=== PATIENT | female | born 1980 ===

== ENCOUNTER 2019-08-02 07:40 | Outpatient (CLI) | payer OTHER ==
[2019-08-02] MEDS ORDERED: LACTATED RINGERS 1,000 ML IV ONE (09:15)
[2019-08-02 10:17] LABS: Basophils % (Auto) 0.3 % (0.0-1.8); Eosinophils # (Auto) 0.1 K/mm3 (0.0-0.4); Hematocrit 34.1 % (30.3-42.9); Hemoglobin 11.5 gm/dl (10.1-14.3); Lymphocytes % (Auto) 11.9 % (13.4-35.0); Mean Corpuscular HGB Conc 34 % (30-34); Mean Corpuscular Volume 82 fl (79-97); Monocytes # (Auto) 0.3 K/mm3 (0.0-0.8); Monocytes % (Auto) 3.8 % (0.0-7.3); Platelet Count 215 K/mm3 (140-440); Red Blood Count 4.16 M/mm3 (3.65-5.03); Red Cell Distribution Width 14.6 % (13.2-15.2)
[2019-08-02 11:55] VITALS: BP 117/56
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
== END 2019-08-02 12:56 | disposition swing bed (61) ==
LOC: TRG 07:40 → LD 07:40 → TRG 12:56
PROVIDERS: ATTEND Obstetrics & Gynecology
DX: O26.893 Other specified pregnancy related conditions, third trimester (principal); M79.601 Pain in right arm; M79.672 Pain in left foot; M25.562 Pain in left knee; M79.642 Pain in left hand; M54.2 Cervicalgia; O47.03 False labor before 37 completed weeks of gestation, third trimester; O32.1XX0 Maternal care for breech presentation, not applicable or unspecified; O99.513 Diseases of the respiratory system complicating pregnancy, third trimester; J45.909 Unspecified asthma, uncomplicated; Z90.49 Acquired absence of other specified parts of digestive tract; Z87.891 Personal history of nicotine dependence; Z3A.29 29 weeks gestation of pregnancy; V89.2XXA Person injured in unspecified motor-vehicle accident, traffic, initial encounter; Y93.89 Activity, other specified; Y92.89 Other specified places as the place of occurrence of the external cause; Y99.8 Other external cause status
CPT/HCPCS: 36415; 76815; 76819; 85025; 86850; 86870; 86900; 86901; 96360; J7120

== ENCOUNTER 2019-08-02 13:11 | Emergency (ER) | payer OTHER ==
[2019-08-02] MEDS ORDERED: ACETAMINOPHEN 325 MG TAB PO ONE (16:17)
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
[2019-08-02 19:02] VITALS: BP 127/68
== END 2019-08-02 19:01 | disposition home or self-care (01) ==
LOC: ED 13:11
DX: O9A.213 Injury, poisoning and certain other consequences of external causes complicating pregnancy, third trimester (principal); S93.602A Unspecified sprain of left foot, initial encounter; S16.1XXA Strain of muscle, fascia and tendon at neck level, initial encounter; J45.909 Unspecified asthma, uncomplicated; Z87.891 Personal history of nicotine dependence; V49.49XA Driver injured in collision with other motor vehicles in traffic accident, initial encounter; Y93.89 Activity, other specified; Y92.488 Other paved roadways as the place of occurrence of the external cause; Y99.8 Other external cause status
CPT/HCPCS: 72040; 99283

== ENCOUNTER 2019-10-02 05:40 | Inpatient (IN) | payer OTHER ==
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
[~2019-10-02 05:40] MED LIST: BICITRA ORAL LIQD 30ML PO ONE; FAMOTIDINE 20 MG/2 ML INJ IV ONE; LACTATED RINGERS 1,000 ML IV SCH; METOCLOPRAMIDE 10 MG/2 ML INJ IV ONE; OXYTOCIN 20 UNIT/1000ML DRIP 20 UNITS/1,000 ML BAG IV SCH
[2019-10-02] MEDS ORDERED: ceFAZolin/Water 2 GM/20 ML 2 GM/20 ML SYRINGE IV NR (06:00)
[2019-10-02] MEDS ORDERED: FAMOTIDINE 20 MG/2 ML INJ IV ONE (07:12)
[2019-10-02] MEDS ORDERED: BICITRA ORAL LIQD 30ML ONE (07:12)
[2019-10-02] MEDS ORDERED: METOCLOPRAMIDE 10 MG/2 ML INJ ONE (07:17)
[2019-10-02 07:28] LABS: Basophils % (Auto) 0.5 % (0.0-1.8); Eosinophils # (Auto) 0.2 K/mm3 (0.0-0.4); Eosinophils % (Auto) 2.2 % (0.0-4.3); Hematocrit 32.5 % (30.3-42.9); Lymphocytes # (Auto) 1.5 K/mm3 (1.2-5.4); Lymphocytes % (Auto) 19.8 % (13.4-35.0); Mean Corpuscular HGB Conc 34 % (30-34); Mean Corpuscular Volume 81 fl (79-97); Monocytes # (Auto) 0.6 K/mm3 (0.0-0.8); Monocytes % (Auto) 7.1 % (0.0-7.3); Platelet Count 178 K/mm3 (140-440); Red Blood Count 4.04 M/mm3 (3.65-5.03); Red Cell Distribution Width 15.8 % (13.2-15.2)
--- NOTE | 2019-10-02 07:29 | Anesthesia Day of Surgery ---
Anesthesia Day of Surgery - Day of Surgery Patient Examined: Yes Patient H&P Reviewed: Yes Patient is NPO: Yes
--- NOTE | 2019-10-02 07:29 | Anesthesia Consultation ---
Anesthesia Consult and Med Hx Date of service: 10/02/19 - Airway Anesthetic Teeth Evaluation: Good ROM Head & Neck: Adequate Mental/Hyoid Distance: Adequate Mallampati Class: Class II Intubation Access Assessment: Probably Good - Pulmonary Exam CTA: Yes - Cardiac Exam Cardiac Exam: RRR - Pre-Operative Health Status ASA Pre-Surgery Classification: ASA2 Proposed Anesthetic Plan: Spinal - Pulmonary Hx Asthma: Yes - Cardiovascular System Hx Hypertension: No - Central Nervous System Hx Seizures: No Hx Psychiatric Problems: No - Endocrine Hx Renal Disease: No Hx Hypothyroidism: No Hx Hyperthyroidism: No - Hematic Hx Anemia: Yes Hx Sickle Cell Disease: No - Other Systems Hx Alcohol Use: No
[2019-10-02] MEDS ORDERED: BUPIVACAINE/PF (0.5%) 5 MG/1 ML 30 ML VIAL INFILTRATI ONE (08:48)
[2019-10-02] MEDS ORDERED: KETOROLAC 30 MG/1 ML INJ ONE (08:48)
[2019-10-02] MEDS ORDERED: DEXMEDETOMIDINE 200 MCG/2 ML VIAL IV ONE (08:48)
[2019-10-02] MEDS ORDERED: dexAMETHasone 20 MG/5 ML VIAL ONE (08:48)
[2019-10-02] MEDS ORDERED: OXYTOCIN 10 UNIT/1 ML INJ ONE (08:48)
--- NOTE | 2019-10-02 09:33 | Procedure Note ---
OB Delivery Note - Delivery Date of Delivery: 10/02/19 Surgeon: JESSICA HAMEED Estimated blood loss: other (800 mL) - Section Preop diagnosis: repeat , desires sterilization Postop diagnosis: same section procedure: section, repeat low transverse, other (Bilateral Salpingectomy ) Disposition: PACU Complications: none Narrative: Please see operative report. - A at 1 minute: 8 at 5 minutes: 9 Infant Gender: Male (2396g (5lb 5oz) @ 0838 am)
--- NOTE | 2019-10-02 09:35 | Operative Report ---
Operative Report Operative Report: Date of procedure: October 02, 2019 Preoperative diagnosis: 1) IUP at 37w5d 2) RH Isoimmunization 3) Previous cole jennifer x 1 4) Undesired Fertility 5) AMA Postoperative diagnosis: Same Procedure: 1) Repeat low transverse section 2) Bilateral salpingectomy Surgeon: Carmen Hart M.D. Anesthesia: Regional Findings: 1) Viable male , Apgars 8 and 9 , weight 2396 g, (5 lb 5 oz) in cephalic presentation 2) Normal appearing ovaries and tubes Estimated blood loss: 800 mL Urine output: 25 mL, clear at the end of the procedure Drains: Lei to gravity Specimens: Placenta, fallopian tubes to pathology Complications: Counts correct x 3 Disposition: Stable to PACU Indication for procedure: Pt is a 38 year old female at 37w5d who presents for scheduled section secondary to previous section and Rh Isoimmunization per [facility] recommendation. Operation in Detail: After the risks, benefits, alternatives and complications were explained to the patient she gave informed consent for the procedure. She was subsequently taken to the operating room where regional anesthesia was noted to be adequate. She was then placed in the dorsal supine position with leftward tilt and prepped and draped in a normal sterile fashion. heart tones were noted prior to in cision. A timeout was performed. A Pfannenstiel skin incision was made with the knife and carried down to the layer of the fascia with the Bovie. The fascia was incised in the midline and the fascial incision was extended bilaterally with the Bovie. The fascial incision was then stretched. The rectus muscles were then in the midline and partially transected for adequate visualization. The peritoneum was then entered sharply between two Susy clamps. The peritoneal incision was extended with good visualization of the bladder. The peritoneal incision was then stretched. An Valeriy retractor was placed. The bladder blade was placed. The vesicouterine peritoneum was incised with Metzenbaum scissors and a bladder flap was created. The bladder blade was replaced. A transverse incision was made in the lower uterine segment with a knife and extended bilaterally with the bandage scissors. The head was delivered without difficulty followed by delivery of the shoulders and body. was bulb suctioned at delivery. The cord was clamped and cut and the was handed to NICU staff in attendance. Cord blood was collected. The placenta was then delivered manually. The uterus was exteriorized and cleared of all clots and debris. The hysterotomy was then reapproximated with 0 Vicryl in a running locked fashion. A second layer of 0 Vicryl was used in an imbricating fashion. The hysterotomy was inspected and hemostasis was noted. Attention was then turned to the salpingectomy. The left tube was identified, grasped with a aniket and followed out to the fimbriae. The mesosalpinx underlying the left tube was ligated with the Ligasure until the left fallopian tube was excised and sent to pathology. The same procedure was followed with the right fallopian tube. It was identified and followed to the fimbriae. The mesosalpinx underlying the right fallopian tube was ligated with the Ligasure device until the tube was excised and sent to pathology. Hemostasis was noted. The gutters were irrigated and cleared of all clots and debris. The uterus was placed back into the peritoneal cavity. The hysterotomy was again inspected and noted to be hemostatic. Surgicel was placed over the hysterotomy. The peritoneum was reapproximated with 2-0 Vicryl in a running fashion incorporating the rectus muscles. Surgicel was placed over the muscles. The fascia was reapproximated with 0-Vicryl in a running fashion. The subcutaneous tissue was reapproximated with 3-0 Vicryl in a running fashion. The skin was reapproximated with 4-0 Vicryl in a subcuticular fashion. The incision was then covered with steri strips and a pressure dressing. The procedure was then ended. The patient tolerated the procedure well and was taken to the PACU in stable condition. All instrument, lap, and needle counts were correct 3.
--- NOTE | 2019-10-02 10:22 | Post Anesthesia Evaluation ---
- Post Anesthesia Evaluation Patient Participated: Yes Airway Patent: Yes Stable Respiratory Function: Yes Nausea/Vomiting: No Temp > 96.8F: Yes Pain Manageable: Yes Adequeate Hydration: Yes Anesthesia Complications: No Block Receding Appropriately: Yes
[2019-10-02] MEDS ORDERED: ONDANSETRON 4 MG/2 ML INJ IV PRN (11:45)
[2019-10-02] MEDS ORDERED: LANOLIN/ZINC/DIMETHICONE (LANSINOH) 7 GM TP PRN (11:45)
[2019-10-02] MEDS ORDERED: NALOXONE 0.4 MG/1 ML INJ IV PRN (11:45)
[2019-10-02] MEDS ORDERED: MORPHINE 4 MG/1 ML INJ IV PRN (11:45)
[2019-10-02] MEDS ORDERED: MORPHINE 2 MG/1 ML INJ IV PRN (11:45)
[2019-10-02] MEDS ORDERED: D5W/LACTATED RINGERS 1,000 ML IV SCH (11:45)
[2019-10-02] MEDS ORDERED: WITCH HAZEL/ GLYCERIN PAD TP PRN (11:45)
[2019-10-02] MEDS ORDERED: OXYTOCIN 20 UNIT/1000ML DRIP 20 UNITS/1,000 ML BAG IV SCH (11:45)
[2019-10-02] MEDS ORDERED: ACETAMINOPHEN 325 MG TAB PO PRN (11:45)
[2019-10-02] MEDS ORDERED: MAGNESIUM HYDROXIDE (MOM) ORAL LIQD UDC PO PRN (11:45)
[2019-10-02] MEDS ORDERED: SIMETHICONE 80 MG CHEW TAB PO PRN (11:45)
[2019-10-02] MEDS: KETOROLAC 30 MG/1 ML INJ IV PRN ×2 (15:11→23:53)
[2019-10-02] MEDS: ceFAZolin/NS 1 GM/50 ML 1 GM/50 ML BAG IV SCH (17:45)
[2019-10-02 21:37] LABS: Hematocrit 29.9 % (30.3-42.9); Hemoglobin 10.1 gm/dl (10.1-14.3)
[2019-10-03] MEDS: ceFAZolin/NS 1 GM/50 ML 1 GM/50 ML BAG IV SCH (01:19)
[2019-10-03] MEDS: KETOROLAC 30 MG/1 ML INJ IV PRN (05:25)
--- NOTE | 2019-10-03 08:40 | Progress Note ---
Assessment and Plan A: POD1 s/p pLTCS and salpingectomy Gestational hypertension Labs stable P: Check BP q1hr Collect pree labs Close clinical monitoring Subjective - Subjective Date of service: 10/03/19 Principal diagnosis: s/p repeat LTCS and salpingectomy Interval history: POD1 s/p repeat LTCS and salpingectomy. Blood pressure is trending up. One severe range BP last night, pt states she was in significant pain when BP was assessed. Mild range since then. She denies GARSIA, scotomata, RUQ pain. Patient reports: appetite normal, voiding normally, pain well controlled, flatus, ambulating normally, no bowel movement : doing well Objective - Vital Signs Latest vital signs: Vital Signs Temp Pulse Resp BP BP Pulse Ox 10/03/19 07:42 98.0 F 74 20 147/84 98 10/03/19 00:15 98.6 F 83 19 161/75 10/02/19 20:16 98.9 F 71 18 146/81 10/02/19 15:58 97.8 F 68 20 149/86 98 10/02/19 11:56 97.4 F L 61 20 118/65 97 10/02/19 11:46 97.9 F 56 L 16 136/76 100 10/02/19 10:42 97.6 F 10/02/19 10:35 53 L 18 124/68 100 10/02/19 10:20 55 L 18 121/67 99 10/02/19 10:05 54 L 18 113/67 99 10/02/19 09:50 68 18 104/62 99 10/02/19 09:45 71 18 95/36 99 10/02/19 09:40 97.4 F L 67 18 104/38 99 Intake and Output 10/02/19 10/03/19 10/03/19 23:59 07:59 15:59 Intake Total 290 Output Total 1000 800 Balance -710 -800 Intake: IV 50 ANCEF/NS 1 GM/50 ML 1 gm 50 In 50 ml @ 100 mls/hr IV Q8H [facility] Rx#:[id number] Oral 240 Output: Urine 1000 800 Indwelling Catheter 400 Void 600 800 Other: Total, Intake Amount 240 Total, Output Amount 600 800 # Voids Void 1 1 - Exam Lungs: Present: Normal air movement Abdomen: Present: soft. Absent: distention Uterus: Present: firm, fundal height below umbilicus. Absent: bogginess Extremities: Present: normal Incision: Present: dressed - Labs Labs: Abnormal lab results 10/02/19 10/02/19 Range/Units 07:15 21:23 Hct 29.9 L (30.3-42.9) % Crossmatch See Detail
[2019-10-03] MEDS: FERROUS SULFATE 325 MG TAB PO SCH (09:05)
[2019-10-03] MEDS: IBUPROFEN 800 MG TAB PO PRN ×2 (09:05→23:05)
[2019-10-03 09:26] LABS: Alanine Aminotransferase 47 units/L (7-56); Uric Acid 5.8 mg/dL (3.5-7.6)
[2019-10-03 09:45] LABS: Creatinine,Urine 140.9 mg/dL (0.1-20.0); Protein/Creatinine Ratio,Urine 0.15
[2019-10-03] MEDS ORDERED: MEASLES, MUMPS & RUBELLA 12,500 UNIT/0.5 ML VACCINE SUB-Q ONE (10:00)
[2019-10-03] MEDS ORDERED: DIPHtheria,PERTUSSIS(ACELL),TETANUS VACCINE/PF 0.5 ML VIAL IM ONE (10:00)
[2019-10-03] MEDS ORDERED: CALCIUM CARBONATE 500 MG TAB CHEW PO PRN (17:43)
[2019-10-03] MEDS: oxyCODONE /ACETAMINOPHEN 5-325MG TAB PO PRN (17:53)
[2019-10-04] MEDS: oxyCODONE /ACETAMINOPHEN 5-325MG TAB PO PRN ×3 (00:25→15:08)
[2019-10-04] MEDS: FERROUS SULFATE 325 MG TAB PO SCH (09:22)
[2019-10-04] MEDS: IBUPROFEN 800 MG TAB PO PRN ×2 (09:22→21:15)
--- NOTE | 2019-10-04 14:42 | Progress Note ---
Assessment and Plan A: POD#2 s/p repeat section, bilateral salpingectomy P: Routine postoperative care. Anticipate discharge tomorrow. Subjective - Subjective Date of service: 10/04/19 Principal diagnosis: s/p repeat LTCS and salpingectomy Interval history: No complaints. Patient reports: appetite normal, voiding normally, pain well controlled, flatus, bowel movement, ambulating normally [place]: in NICU Objective - Vital Signs Latest vital signs: Vital Signs Temp Pulse Resp BP Pulse Ox 10/04/19 09:14 97.8 F 80 18 135/75 98 10/04/19 07:33 18 10/04/19 06:34 18 10/04/19 01:39 97.7 F 67 20 137/82 98 10/04/19 01:25 18 10/04/19 00:25 18 10/04/19 00:05 18 10/03/19 23:05 18 10/03/19 15:53 98.5 F 75 20 151/87 99 Intake and Output 10/03/19 10/04/19 10/04/19 22:59 06:59 14:59 Intake Total 120 360 Balance 120 360 Intake: Oral 120 120 Intake, Free Water 240 Other: Total, Intake Amount 120 120 # Voids Void 1 1 - Exam Abdomen: Present: soft
[2019-10-05] MEDS: IBUPROFEN 800 MG TAB PO PRN ×2 (04:59→22:37)
--- NOTE | 2019-10-05 08:46 | Progress Note ---
Assessment and Plan A: POD#3s/p repeat section, bilateral salpingectomy New onset headache and severe range hypertension consistent with severe pr eeclampsia P: Pt to be transferred to labor and delivery to receive IV Magnesium Sulfate for seizure prophylaxis. Continue to monitor closely. Subjective - Subjective Date of service: 10/05/19 Principal diagnosis: s/p repeat LTCS and salpingectomy Interval history: Pt reports headache overnight, and has severe range blood pressures today. Patient reports: appetite normal, voiding normally, pain well controlled, flatus, bowel movement, ambulating normally [place]: in NICU Objective - Vital Signs Latest vital signs: Vital Signs Temp Pulse Resp BP Pulse Ox 10/04/19 23:38 97.7 F 66 18 140/60 98 10/04/19 15:12 97.9 F 75 20 147/81 97 10/04/19 09:14 97.8 F 80 18 135/75 98 Intake and Output 10/04/19 10/05/19 10/05/19 22:59 06:59 14:59 Intake Total 600 600 Balance 600 600 Intake: Oral 240 Intake, Free Water 360 600 Other: Total, Intake Amount 240 # Voids Void 1 2 - Exam Abdomen: Present: soft Uterus: Present: fundal height below umbilicus Extremities: Present: edema (trace) Incision: Present: intact - Labs Labs: Abnormal lab results 10/02/19 Range/Units 07:15 Crossmatch See Detail
[2019-10-05] MEDS ORDERED: MAGNESIUM SULFATE 40GM/1000ML 40 GM/1,000 ML BAG IV ONE (09:02)
[2019-10-05] MEDS ORDERED: MAGNESIUM SULFATE 4 GM/100 ML BAG IV ONE ×2 (09:03→09:57)
[2019-10-05] MEDS ORDERED: LACTATED RINGERS 1,000 ML ONE (09:40)
[2019-10-05] MEDS ORDERED: LACTATED RINGERS 1,000 ML IV SCH (09:57)
[2019-10-05] MEDS ORDERED: hydrALAZINE 20 MG/1 ML INJ IV PRN (09:57)
[2019-10-05] MEDS ORDERED: MAGNESIUM SULFATE 40GM/1000ML 40 GM/1,000 ML BAG IV SCH (09:57)
[2019-10-05] MEDS ORDERED: BUTALB/ACETAMINOPHEN/CAFFEINE TAB PO PRN (11:51)
[2019-10-05] MEDS: oxyCODONE /ACETAMINOPHEN 5-325MG TAB PO PRN (17:58)
[2019-10-05] MEDS: FERROUS SULFATE 325 MG TAB PO SCH (19:06)
[2019-10-06] MEDS: oxyCODONE /ACETAMINOPHEN 5-325MG TAB PO PRN ×2 (03:49→12:04)
[2019-10-06] MEDS: IBUPROFEN 800 MG TAB PO PRN (12:05)
--- NOTE | 2019-10-06 12:14 | Progress Note ---
Assessment and Plan A: POD#4 s/p repeat section, bilateral salpingectomy New onset headache and severe range hypertension consistent with severe p reeclampsia; s/p 24 hr magnesium sulfate P: Discharge home today on PO labetalol with follow up this coming week for BP check. Subjective - Subjective Date of service: 10/06/19 Principal diagnosis: s/p repeat LTCS and salpingectomy Interval history: Pt feels much better. She has received 24 hours of magnesium sulfate for seizure prophylaxis. Patient reports: appetite normal, voiding normally, pain well controlled, flatus, bowel movement, ambulating normally Dola: doing well, in NICU Objective - Vital Signs Latest vital signs: Vital Signs Temp Pulse BP 10/06/19 11:54 82 159/83 10/06/19 11:41 74 161/81 10/06/19 11:40 74 160/80 10/06/19 10:51 76 138/80 10/06/19 08:29 77 152/84 10/06/19 08:12 86 165/74 10/06/19 08:06 85 159/74 10/06/19 07:36 65 141/81 10/06/19 07:06 68 140/66 10/06/19 06:36 62 135/81 10/06/19 06:07 65 150/72 10/06/19 05:36 66 122/66 10/06/19 05:10 68 147/73 10/06/19 05:09 72 143/71 10/06/19 04:36 65 131/74 10/06/19 04:06 66 133/64 10/06/19 03:36 68 159/82 10/06/19 03:06 75 158/73 10/06/19 02:36 79 161/88 10/06/19 02:06 64 139/73 10/06/19 01:36 60 154/74 10/06/19 01:06 61 139/72 10/06/19 00:36 65 138/68 10/06/19 00:06 72 139/79 10/05/19 23:36 65 132/72 10/05/19 23:06 70 138/79 10/05/19 22:36 65 127/72 10/05/19 22:06 70 125/76 10/05/19 21:36 68 132/73 10/05/19 21:06 71 139/73 10/05/19 20:36 69 126/70 10/05/19 20:06 76 129/65 10/05/19 19:36 85 132/72 10/05/19 19:06 93 H 138/75 10/05/19 18:49 102 H 152/89 10/05/19 18:36 95 H 145/100 10/05/19 18:06 86 142/82 10/05/19 18:00 98.4 F 10/05/19 17:46 84 156/84 10/05/19 17:43 88 168/82 10/05/19 17:36 98 H 202/93 10/05/19 17:06 89 138/68 10/05/19 16:36 88 133/65 10/05/19 16:06 93 H 143/67 10/05/19 16:00 98.1 F 10/05/19 15:36 96 H 140/63 10/05/19 15:06 92 H 146/67 10/05/19 14:33 96 H 161/77 10/05/19 14:31 93 H 172/77 10/05/19 14:30 98 H 201/85 10/05/19 14:00 98.1 F 10/05/19 12:30 98.3 F 10/05/19 12:21 97 H 165/77 Intake and Output 10/05/19 10/06/19 10/06/19 22:59 06:59 14:59 Output Total 1800 1600 800 Balance -1800 -1600 -800 Output: Urine 1800 1600 800 Void 1800 1600 800 Other: Total, Output Amount 800 500 800 # Voids Void 3 2 3 - Exam Breasts: Present: deferred Abdomen: Present: soft. Absent: distention Uterus: Present: fundal height below umbilicus Extremities: Present: normal Incision: Present: intact - Labs Labs: Abnormal lab results 10/06/19 10/06/19 Range/Units 00:27 08:27 Magnesium 5.60 H 6.40 H (1.7-2.3) mg/dL
--- NOTE | 2019-10-06 12:18 | Discharge Summary ---
Providers - Providers Date of Admission: 10/02/19 05:40 Date of discharge: 10/06/19 Attending physician: JESSICA HAMEED Primary care physician: JESSICA HAMEED Hospitalization Reason for admission: section Delivery: Procedure: section, repeat low transverse, other (Bilateral salpingectomy ) Procedure details: Please see operative report. Incision: intact Other procedures: none complications: none Discharge diagnosis: IUP at term delivered [place] baby: male Hospital course: Pt was admitted for repeat section which she tolerated well. During her hospitalization she developed severe preeclampsia and received 24 hours magnesium sulfate for seizure prophylaxis, and was started on PO Labetalol. She met discharge criteria on POD#4. She will follow up this week in the office for a BP check. Condition at discharge: Stable Disposition: DC-01 TO HOME OR SELFCARE - Discharge Diagnoses (1) Term of male Status: Acute (2) S/P section Status: Acute (3) AMA (advanced maternal age) multigravida 35+ Status: Acute Qualifiers: Trimester: third trimester Qualified Code(s): O09.523 - Supervision of elderly multigravida, third trimester (4) Severe preeclampsia Status: Acute Qualifiers: Trimester: third trimester Qualified Code(s): O14.13 - Severe pre- eclampsia, third trimester Plan - Discharge Medications Prescriptions: Ibuprofen [Motrin] 800 mg PO Q8HR PRN #30 tablet PRN Reason: Pain, Moderate (4-6) oxyCODONE /ACETAMINOPHEN [Percocet 5/325] 1 tab PO Q6HR PRN #40 tablet PRN Reason: Pain - Provider Discharge Summary Activity: routine, no sex for 6 weeks, no heavy lifting 4 weeks, no strenuous exercise Diet: routine Instructions: routine Additional instructions: [] Smoking cessation referral if applicable(refer to patient education folder for contact #) [] Refer to [facility] Booklet Call your doctor immediately for: * Fever > 100.5 * Heavy vaginal bleeding ( >1 pad per hour) * Severe persistent headache * Shortness of breath * Reddened, hot, painful area to leg or breast * Drainage or odor from incision. * Keep incision clean and dry at all times and follow doctor's instructions regarding bathing/showering - Follow up plan Follow up: JESSICA HAMEED MD [Primary Care Provider] - 7 Days
[2019-10-08 11:36] VITALS: BP 159/83
== END 2019-10-06 12:46 | disposition home or self-care (01) | DRG 784 ==
LOC: APU 05:40 → OB 11:34 → LD 10-05 09:39
PROVIDERS: ADMIT Obstetrics & Gynecology; ATTEND Obstetrics & Gynecology
PROC: 10D00Z1 Extraction of Products of Conception, Low, Open Approach (ICD-10-PCS; principal; 2019-10-02)
PROC: 0UB70ZZ Excision of Bilateral Fallopian Tubes, Open Approach (ICD-10-PCS; 2019-10-02)
PROC: 3E0234Z Introduction of Serum, Toxoid and Vaccine into Muscle, Percutaneous Approach (ICD-10-PCS; 2019-10-03)
DX: O34.211 Maternal care for low transverse scar from previous cesarean delivery (principal); D62 Acute posthemorrhagic anemia; Z3A.37 37 weeks gestation of pregnancy; Z37.0 Single live birth; Z23 Encounter for immunization; O34.13 Maternal care for benign tumor of corpus uteri, third trimester; D25.9 Leiomyoma of uterus, unspecified; O14.14 Severe pre-eclampsia complicating childbirth; O90.81 Anemia of the puerperium; Z30.2 Encounter for sterilization
CPT/HCPCS: 36415; 82565; 82570; 83615; 83735; 84156; 84450; 84460; 84550; 85014; 85018; 85025; 86592; 86850; 86870; 86900; 86901; 86920; 86922; 88302; 88307; G0378; J0690; J1100; J1885; J2590; J2765; J3475; J3490; J7120